=== PATIENT | female | born 1950 | race Caucasian/White ===

== ENCOUNTER 2019-01-31 15:34 | Inpatient (IN) ==
[2019-01-31] MEDS ORDERED: DUONEB (A & A) INH ONE (15:57)
--- NOTE | 2019-01-31 16:12 | Diag Imaging Result Doc PS360 ---
EXAM: CHEST-2 VIEWS 01/31/2019 HISTORY: sob TECHNIQUE: AP upright and sitting lateral chest COMMENT: Compared to 01/10/2019 the lung bases are clearer particularly the left lower lobe. Otherwise there has been no significant change. IMPRESSION: Improved left lower lobe atelectasis versus pneumonia. Electronically signed by Poli Freeman 01/31/2019 4:10 PM
[2019-01-31 16:45] LABS: ALLEN TEST YES; BE 1.7 mmoll (-3.0-3.0); BLOOD TYPE ARTERIAL; HCO3-(ACT) 25.9 mmoll (20.0-26.0); METHB 0.2 % (0.0-1.5); O2(CT) 16.2 mL/dL (15.0-23.0); PCO2(98.6) 45 mmHg (35-45); SAMPLE BLOOD; THB 13.7 g/dL (11.5-17.4); pH(98.6) 7.39 (7.35-7.45)
[2019-01-31 16:48] LABS: MODALITY CANNULA; PO2(98.6) 48 mmHg (60-100)
[2019-01-31 16:49] LABS: O2HB 84.2 % (95.0-99.0)
[2019-01-31 17:36] LABS: BASO# 0.07 X1000 (0.0-0.2); BASO% 0.6 % (0.0-0.8); EOS# 0.03 X1000 (0.0-0.7); EOS% 0.2 % (0.0-10.0); HEMATOCRIT 43.6 % (37.0-47.0); HEMOGLOBIN 14.4 g/dL (12.0-16.0); IMM GRAN# 0.07 X1000 (0.0-0.04); IMM GRAN% 0.6 % (0.0-0.5); LYMPH# 1.44 X1000 (1.2-3.4); LYMPH% 11.9 % (20.5-51.1); MCH 30.4 PG (27-31); MCV 92.2 FL (81-99); MONO# 1.49 X1000 (0.11-0.59); MONO% 12.3 % (1.7-9.3); MPV 10.9 FL (7.4-10.4); NEUT# 8.98 X1000 (1.4-6.5); NEUT% 74.4 % (42.2-75.2); PLT 189 X1000 (130-400); RBC 4.73 XMIL (4.2-5.4); RDW 14.5 % (11.5-14.5); WBC 12.08 X1000 (4.8-10.8)
[2019-01-31 17:46] LABS: INR 0.91
[2019-01-31 17:47] LABS: PTT 34.4 Seconds (22.3-41.8)
[2019-01-31 18:10] LABS: ALB/GLOB RATIO 1.3; ALBUMIN 4.3 g/dL (3.5-5.0); CALCIUM 8.8 mg/dL (8.8-10.2); CREATININE 1.3 mg/dL (0.5-0.9); POTASSIUM 4.5 mmol/L (3.5-5.1); TOTAL BILIRUBIN 0.54 mg/dL (0.20-1.00); TOTAL PROTEIN 7.6 g/dL (6.3-8.3)
--- NOTE | 2019-01-31 18:18 | PROVIDER DOCUMENTATION ---
This chart was entered by Caryn Ron Scribe, acting as scribe for Jensen Cerna DO. HPI-Respiratory General - General Chief Complaint: Shortness of Breath Stated Complaint: O2 LEVEL LOW, (R) HIP PAIN Time Seen by Provider: 01/31/19 15:56 Source: patient, family Allergies/Adverse Reactions: Patient Allergies Allergy/AdvReac Type Severity Reaction Status Date / Time amitriptyline Allergy Mild ITCHING Verified 01/31/19 15:47 azithromycin Allergy Mild ITCHING Verified 01/31/19 15:47 codeine Allergy Mild ITCHING Verified 01/31/19 15:47 ketorolac tromethamine * Allergy Mild ITCHING Verified 01/31/19 15:47 [From Toradol] Quinolones Allergy Mild ITCHING Verified 01/31/19 15:47 ketorolac [From Toradol] Allergy Unknown Verified 01/31/19 15:47 Home Medications: Home Medication List Medication Instructions Recorded Confirmed Last Taken Type Ascorbic Acid [Vitamin C] 500 mg PO DAILY 12/29/15 01/31/19 08/19/18 History Multivit with Calcium,Iron,Min 1 each PO DAILY 12/29/15 01/31/19 08/19/18 History [Women's Daily Multivitamin] [place]-3 Fatty Acids/Fish Oil [Fish 1 each PO DAILY 12/29/15 01/31/19 08/19/18 H istory Oil 1,000 mg Softgel] Aspirin 81 mg PO DAILY 07/11/18 01/31/19 08/19/18 History Calcium Carb/Vitamin D3/Vit K1 1 each PO DAILY 07/11/18 01/31/19 08/19/18 History [Calcium + D Soft Chewable Tab] Cyanocobalamin/Cobamamide [B12 1 each SL DAILY 07/11/18 01/31/19 08/19/18 History 5,000 Mcg Microlozenge] Pregabalin [Lyrica] 150 mg PO BID 07/11/18 01/31/19 08/19/18 History LISINOpril [Prinivil] 20 mg PO DAILY #30 tab 08/22/18 01/31/19 Unknown Rx Albuterol [Albuterol Neb] 1 dose INH PRN PRN 01/10/19 01/31/19 Unknown History Alirocumab [Praluent Pen] 1 dose SQ DIRECTED 01/10/19 01/31/19 01/26/19 History Amlodipine Besylate 1 tab PO DAILY 01/10/19 01/31/19 Unknown History Cholecalciferol (Vitamin D3) 1 cap PO DAILY 01/10/19 01/31/19 Unknown History [Vitamin D3] Cyanocobalamin/Folic Acid [Vitamin 1 tab PO DAILY 01/10/19 01/10/19 Unknown History E17-Tgelb Acid Tablet] Denosumab [Prolia] 1 ea IM DIRECTED 01/10/19 01/31/19 03/21/18 History Escitalopram [Lexapro] 1 tab PO DAILY 01/10/19 01/31/19 Unknown History Furosemide 1 tab PO DAILY 01/10/19 01/31/19 Unknown History Insulin Aspart [Novolog Flexpen] 1 dose SQ DIRECTED 01/10/19 01/31/19 Unknown History Insulin Glargine [Basaglar] 8 units SQ QHS 01/10/19 01/31/19 Unknown History Linagliptin [Tradjenta] 1 tab PO DAILY 01/10/19 01/31/19 Unknown History Lisinopril 1 tab PO DAILY 01/10/19 01/10/19 Unknown History Pioglitazone [Actos] 1 tab PO DAILY 01/10/19 01/31/19 Unknown History Simvastatin 1 tab PO DAILY 01/10/19 01/31/19 Unknown History - History of Present Illness-Resp Nature of Presenting Problem: 68 yof presents to the ed with c/o sob and cough for 3 days. pt was seen today at the urgent care due for low o2 and was given a neb tx. pt on triage was 77% on RA. pt ambulates well and unassisted to room Quality of Pain: reports: none Severity in ED: reports: mild Onset/Duration: reports: 3 days ago Timing: reports: still present Context: reports: recent URI Cough Quality/Degree: reports: dry cough Episode Frequency: frequent episodes Current Respiratory Medication Therapy: Initiated see nurses note Modifying Factors: improves with: oxygen, rest, sitting upright. worse with: exertion, lying down Associated Symptoms: reports: cough, hurts to breathe, shortness of breath, wheezing. denies: chest pain/soreness, dizziness, fever/chills, flu-like symptoms, headache Similar Symptoms Previously?: Yes Recently seen or treated by another doctor?: Yes (was at urgent caare today) Review of Systems - Adult - REVIEW OF SYSTEMS - ADULT Constitutional: denies: chills, fever Eyes: reports: no symptoms reported Ears, Nose, Mouth & Throat: reports: no symptoms reported Cardiovascular: denies: chest pain, palpitations, syncope Respiratory: reports: see HPI, chronic cough, dyspnea on exertion, shortness of breath, wheezing Gastrointestinal: denies: abdominal pain, diarrhea, nausea, vomiting Genitourinary: reports: no symptoms reported Musculoskeletal: denies: back pain, neck pain Integumentary: reports: no symptoms reported Neurological: denies: dizziness/vertigo, headache/migraines Psychiatric: reports: no symptoms reported Endocrine: reports: no symptoms reported Hematologic/Lymphatic: reports: no symptoms reported Allergic/Immunologic: reports: no symptoms reported All Other Systems: Reviewed and Negative Past History - Adult - PAST MEDICAL HISTORY-ADULT Review of Records: reports: Nursing Assessment Review, Medications Reviewed Major Childhood Illnesses: reports: denies history Cardiovascular: reports: CAD, cardiac disease, denies history, HTN, hyperlipidemia Respiratory: reports: COPD, denies history Gastrointestinal: reports: denies history Obstetrical/Gynecological: reports: denies history Genitourinary: reports: denies history Musculoskeletal: reports: denies history Neurological: reports: denies history Endocrine/Immune: reports: Diabetes Diabetes Type: Type 2 Other Conditions: reports: denies history - PRIOR SURGERIES/PROCEDURES Surgical/Procedure History: reports: hysterectomy, appendectomy - IMMUNIZATION STATUS Childhood Immunizations: See Nurse Assessment Flu Vaccine: See Nurse Assessment - FAMILY HISTORY Family History: reviewed, not pertinent - SOCIAL HISTORY Smoking: cigarettes, chew, less than 1 pack/day Substance Use: denies Alcohol Use Frequency: never Living Situation: family Physical Exam-General - PHYSICAL EXAM-ADULT Initial Vital Signs Reviewed: Yes - CONSTITUTIONAL General Appearance: appears well, alert, no apparent distress - EYES Eyes: PERRL/EOMI, pink conjunctivae - HEAD, EARS, NOSE, MOUTH & THROAT HENMT: normocephalic/atraumatic, moist mucous membranes, normal ENT inspection - NECK Neck: non-tender, full range of motion, supple, normal inspection - RESPIRATORY Respiratory: respiratory distress (mild), wheezing, increased rate (26) - CARDIOVASCULAR Cardiovascular: normal peripheral pulses, regular rate, rhythm - GASTROINTESTINAL (ABDOMEN) Abdominal Exam: normal bowel sounds, non tender, soft - LYMPHATIC Lymphatic: no adenopathy - MUSCULOSKELETAL Back Exam: normal inspection, no CVA tenderness, no vertebral tenderness Extremity: normal range of motion, non-tender, normal gait, normal inspection, no pedal edema, no calf tenderness, normal capillary refill, pelvis stable - SKIN Integumentary: normal color, normal turgor, warm/dry - NEUROLOGIC Neurologic: grossly normal, no motor/sensory deficits - PSYCHIATRIC Psych/Mental Status: normal mood/affect, normal thought content, normal thought process, oriented x 3 Progress - PLAN OF CARE/RESULTS Progress/Plan/Lab Results: Vital Signs - 8 hr 01/31/19 15:41 01/31/19 15:52 01/31/19 15:53 Temperature 97.4 F L Pulse Rate 78 Respiratory Rate 22 Blood Pressure 161/83 169/88 O2 Sat by Pulse Oximetry 77 L 79 L 86 L 01/31/19 16:00 01/31/19 16:10 01/31/19 16:20 Temperature Pulse Rate 67 67 Respiratory Rate 20 20 Blood Pressure O2 Sat by Pulse Oximetry 94 L 01/31/19 16:30 01/31/19 16:40 01/31/19 16:50 Temperature Pulse Rate 73 73 74 Respiratory Rate 20 19 19 Blood Pressure O2 Sat by Pulse Oximetry 88 L 01/31/19 17:00 01/31/19 17:01 01/31/19 17:02 Temperature Pulse Rate 76 75 76 Respiratory Rate 20 19 20 Blood Pressure 150/76 163/69 O2 Sat by Pulse Oximetry 92 L 90 L 01/31/19 17:10 01/31/19 17:20 01/31/19 17:22 Temperature Pulse Rate 75 73 68 Respiratory Rate 20 17 Blood Pressure O2 Sat by Pulse Oximetry 92 L 93 L 01/31/19 17:30 01/31/19 17:31 01/31/19 17:40 Temperature Pulse Rate 74 74 76 Respiratory Rate 15 16 15 Blood Pressure 149/74 O2 Sat by Pulse Oximetry 93 L 94 L 98 Laboratory Results - last 24 hr 01/31/19 01/31/19 01/31/19 16:30 17:10 17:10 WBC 12.08 H RBC 4.73 Hgb 14.4 Hct 43.6 MCV 92.2 MCH 30.4 MCHC 33.0 RDW Std Deviation 14.5 Plt Count 189 MPV 10.9 H Immature Gran % (Auto) 0.6 H Neut % (Auto) 74.4 Lymph % (Auto) 11.9 L [place] % (Auto) 12.3 H Eos % (Auto) 0.2 Baso % (Auto) 0.6 Immature Gran # (Auto) 0.07 H Neut # (Auto) 8.98 H Lymph # (Auto) 1.44 [place] # (Auto) 1.49 H Eos # (Auto) 0.03 Baso # (Auto) 0.07 PT INR PTT (Actin FS) Specimen Type ARTERIAL Sample Site L RADIAL pH 7.39 pCO2 45 pO2 48 L* HCO3 25.9 Base Excess 1.7 Oxyhemoglobin 84.2 L* ABG O2 Sat (Calculated) 16.2 ABG O2 Saturation 87.0 L ABG Carboxyhemoglobin 3.00 H ABG Methemoglobin 0.2 Antonio Test YES A-a O2 Difference 181.0 Total Hemoglobin 13.7 Lactate 1.00 Liter Flow 5.0 Blood Gas Modality CANNULA FiO2 % 40.0 Sodium 139 Potassium 4.5 Chloride 96 L Carbon Dioxide 26 Anion Gap 17 BUN 30 H Creatinine 1.3 H Estimated GFR/1.73 m2 41 BUN/Creatinine Ratio 23 Calculated Osmolality 303 Calcium 8.8 Total Bilirubin 0.54 AST 28 ALT 12 Alkaline Phosphatase 81 Creatine Kinase 65 Troponin T Kba-[id number]-Moeucusbjts Pept Total Protein 7.6 Albumin 4.3 Globulin 3.3 Albumin/Globulin Ratio 1.3 01/31/19 01/31/19 01/31/19 17:10 17:10 17:10 WBC RBC Hgb Hct MCV MCH MCHC RDW Std Deviation Plt Count MPV Immature Gran % (Auto) Neut % (Auto) Lymph % (Auto) [place] % (Auto) Eos % (Auto) Baso % (Auto) Immature Gran # (Auto) Neut # (Auto) Lymph # (Auto) [place] # (Auto) Eos # (Auto) Baso # (Auto) PT 13.0 INR 0.91 PTT (Actin FS) 34.4 Specimen Type Sample Site pH pCO2 pO2 HCO3 Base Excess Oxyhemoglobin ABG O2 Sat (Calculated) ABG O2 Saturation ABG Carboxyhemoglobin ABG Methemoglobin Antonio Test A-a O2 Difference Total Hemoglobin Lactate Liter Flow Blood Gas Modality FiO2 % Sodium Potassium Chloride Carbon Dioxide Anion Gap BUN Creatinine Estimated GFR/1.73 m2 BUN/Creatinine Ratio Calculated Osmolality Calcium Total Bilirubin AST ALT Alkaline Phosphatase Creatine Kinase Troponin T < 0.010 Gxr-L-Mibhoumhreo Pept 2460 H Total Protein Albumin Globulin Albumin/Globulin Ratio Orders Category Date Time Status Cardiac Monitoring DIRECTED Care 01/31/19 15:47 Active Oxygen Therapy- ED Nursing DIRECTED Care 01/31/19 15:47 Active Saline Loc NOW Care 01/31/19 15:47 Active CHEST-2 VIEWS [RAD] Stat Exams 01/31/19 15:47 Completed ABG [RESP] Routine Lab 01/31/19 16:30 Completed CBC WITH ELECTRONIC DIFF [HEME] Stat Lab 01/31/19 17:10 Completed CK PROFILE [SP CHEM] Stat Lab 01/31/19 17:10 Results COMPREHENSIVE METABOLIC PANEL [CHEM] Stat Lab 01/31/19 17:10 Results PRO B-NATRIURETIC PEPTIDE Stat Lab 01/31/19 17:10 Completed PROTIME WITH INR [COAG] Stat Lab 01/31/19 17:10 Completed PTT [COAG] Stat Lab 01/31/19 17:10 Completed TROPONIN T Stat Lab 01/31/19 17:10 Completed Albuterol 2.5MG/Ipratrop 0.5MG [Duoneb (A & A)] Med 01/31/19 15:57 Discontinued 3 ml INH NOW ONE Aerosol Treatments Routine Oth 01/31/19 15:57 Completed Aerosol Treatments Stat Oth 01/31/19 15:57 Completed CP/SOB/Palp >45 yrs of Age Stat Oth 01/31/19 15:47 Ordered EKG [EKG] Stat Ther 01/31/19 15:47 Ordered Result Diagrams: 01/31/19 17:10 01/31/19 17:10 - REASSESSMENT Reassessment #1 Time Reassessed: 15:20 ( at bedside) Status: improving Reassessment Comment: better since neb tx Reassessment #2 Time Reassessed: 18:16 (pt without O2 sat drops to low 80's quickly) Status: unchanged Reassessment Comment: at bedside - XRAY 1 XRAY: Bilateral XRAY Study: Chest Impression: See EMR Report (EXAM: CHEST-2 VIEWS 01/31/2019 HISTORY: sob TECHNIQUE: AP upright and sitting lateral chest COMMENT: Compared to 01/10/2019 the lung bases are clearer particularly the left lower lobe. Otherwise there has been no significant change. IMPRESSION: Improved left lower lobe atelectasis versus pneumonia. Electronically signed by Poli Freeman 01/31/2019 4:10 PM 01/31/19 1610 Interpreting Physician: Poli Lozano MD Dictated Date/Time: 01/31/19 1609 cc: Jensen Cerna DO; Rome Cohen MD) - CONSULTS/PCP/HOSPITALIST Notification #1 *Consult/PCP/Hospitalist*: hospitalist dr lyons Time Discussed: 18:16 Consult Disposition: Will see in ED Departure - Departure Date of Disposition Decision: 01/31/19 Time of Disposition Decision: 18:17 DIAGNOSIS: SOB (shortness of breath), COPD exacerbation, Tobacco use disorder, moderate, dependence Disposition: ADMITTED INPATIENT 09 Certified Medical Emergency: Emergent Condition: Fair Referrals and Follow-Ups: Rome Cohen MD [Primary Care Provider] - - Critical Care Note This patient required my direct & personal management of CC.: Yes Total Time (mins): 39 Critical Care Statement: This patient required my direct personal management to treat or rule out processes, the absence of which, could potentiallly result in sudden, clinically significant life or limb threatening deterioration. Attestation - Physician/ ANA LAURA Attestation Patient care was provided by Advanced Practice Provider:: No The physician spent face to face time with patient:: Yes Advanced Practice Provider documentation review:: Supervising physician onsite and consulted in the evaluation and care of this patient. The physician did have a face to face encounter with the patient. This chart was documented by the indicated scribe, (Caryn Ron Scribe) and accurately reflects the services I performed and decisions made by Eryn farah Thomas E., DO, as attested by the provider's signature.
[2019-01-31] MEDS ORDERED: ZOFRAN IV PRN (19:10)
[2019-01-31] MEDS ORDERED: TYLENOL PO PRN (19:10)
[2019-01-31] MEDS ORDERED: ROCEPHIN 1 GM in NS 50 ML IV SCH (19:15)
[2019-01-31] MEDS ORDERED: NS 1,000 ML IV SCH (19:15)
[2019-01-31] MEDS ORDERED: DUONEB (A & A) INH SCH (19:30)
[2019-01-31] MEDS ORDERED: ALBUTEROL NEB INH PRN (19:39)
[2019-01-31] MEDS ORDERED: INSULIN ASPART SQ SCH (19:39)
[2019-01-31] MEDS ORDERED: DENOSUMAB IM SCH (19:39)
[2019-01-31] MEDS ORDERED: ALIROCUMAB SQ SCH (19:39)
--- NOTE | 2019-01-31 19:50 | HISTORY AND PHYSICAL ---
HISTORY OF PRESENT ILLNESS: Ms. Cali is a patient of Dr. Rome Cohen. Apparently, her daughter was concerned about her blood sugars running in the 300s and 400s and brought her to [facility]. [facility] they were concerned about her oxygen saturations being low. She denies feeling short of breath, cough or sputum production or pleuritic pain. The daughter was more concerned about her high sugar. This is a 68-year-old female with history of dementia, diabetes mellitus type 2, coronary artery disease and hypertension. She has had trouble with hyperglycemia before. She lives with her daughter, who takes very good care of her. PAST MEDICAL HISTORY: 1. Labile diabetes mellitus type 2 requiring insulin. 2. Coronary artery disease. 3. Recent history of syncope and had a loop recorder placement. 4. Dementia. 5. COPD. 6. Hypertension. 7. Hyperlipidemia. PAST SURGICAL HISTORY: 1. Appendectomy. 2. Hysterectomy. 3. Right ankle surgery. 4. CABG bypass surgery. 5. Recent loop recorder placement. SOCIAL HISTORY: Lives with daughter. Daughter had has MS. No tobacco history of tobacco, alcohol or drug use. She does have a past history of smoking. She quit last year, by their report. FAMILY HISTORY: Noncontributory. ALLERGIES: Amitriptyline, erythromycin, codeine, Toradol, quinolones. REVIEW OF SYSTEMS: General: She denies any weight gain or loss. No fever or chills. HEENT: Unremarkable. Respiratory: No increased work of breathing or dyspnea. No cough. No sputum production. No pleuritic pain. Cardiovascular: No chest pain or tachycardia or palpitations. GI: Unremarkable. : Unremarkable. Musculoskeletal: No significant complaints. Neurologic: No significant complaints. Endocrinologic/Hematologic: No significant history. PHYSICAL EXAMINATION: VITAL SIGNS: Temperature 97.4 degrees, pulse 77, respirations 21, blood pressure 163/82. Weight 131 pounds. Height 5 feet 2 inches. HEENT: Pupils are equal and round. LUNGS: Clear in all lung renteria. CARDIOVASCULAR: Regular rhythm and rate without murmur or S3. ABDOMEN: Soft. SKIN: Warm and dry. LABS: White count 12,080. Hematocrit was 43, platelet count 189,00. Sodium 139, potassium 4.5, chloride 96, BUN 30, creatinine 1.3. Blood sugar was 442, calcium was 8.8, AST 28, ALT 12. Troponin was less than 0.01. ProBNP was 2460. Pro time 13. PTT was 34. A blood gas showed a pH of 7.39, pCO2 of 45, pO2 of 48, O2 saturation 85%. This was on 5 L at 40%. Chest x-ray is improved as far as left lower lobe atelectasis. Could not rule out pneumonia. ASSESSMENT AND PLAN: 1. Severe chronic obstructive pulmonary disease with exacerbation. Questionable infiltrate in the left lower lobe. She is allergic to azithromycin. Will cover for community organisms. Will likely have to go up on her O2. Will follow up with another chest x-ray in the morning. We will check thyroid, B12 and folate and look for any source of bacterial infection but treat her presumptively for pneumonia at this point. 1. Underlying dementia. Aware. 2. History of hypertension. Will try and continue her current medications. cc: Antonio De Santiago MD
[2019-01-31] MEDS: HUMALOG SUBQ SCH ×2 (20:18→22:07)
[2019-01-31] MEDS ORDERED: BASAGLAR SUBQ SCH (21:00)
[2019-01-31] MEDS: LYRICA PO SCH (22:04)
[2019-02-01] MEDS: HUMALOG SUBQ SCH ×5 (06:12→23:06)
[2019-02-01 06:34] LABS: URINE SOURCE CLEAN CATCH
[2019-02-01 07:32] LABS: BASO# 0.02 X1000 (0.0-0.2); BASO% 0.2 % (0.0-0.8); EOS# 0.01 X1000 (0.0-0.7); EOS% 0.1 % (0.0-10.0); HEMATOCRIT 39.7 % (37.0-47.0); HEMOGLOBIN 12.7 g/dL (12.0-16.0); IMM GRAN# 0.04 X1000 (0.0-0.04); IMM GRAN% 0.5 % (0.0-0.5); LYMPH# 1.29 X1000 (1.2-3.4); LYMPH% 14.6 % (20.5-51.1); MCH 29.5 PG (27-31); MCV 92.3 FL (81-99); MONO# 0.77 X1000 (0.11-0.59); MONO% 8.7 % (1.7-9.3); MPV 10.4 FL (7.4-10.4); NEUT% 75.9 % (42.2-75.2); PLT 176 X1000 (130-400); RDW 14.5 % (11.5-14.5); WBC 8.83 X1000 (4.8-10.8)
[2019-02-01 08:03] LABS: ALB/GLOB RATIO 1.2; ALBUMIN 3.7 g/dL (3.5-5.0); CALCIUM 9.6 mg/dL (8.8-10.2); CREATININE 1.6 mg/dL (0.5-0.9); POTASSIUM 3.6 mmol/L (3.5-5.1); TOTAL BILIRUBIN 0.38 mg/dL (0.20-1.00); TOTAL PROTEIN 6.8 g/dL (6.3-8.3)
[2019-02-01 08:08] LABS: BILIRUBIN URINE NEGATIVE (NEGATIVE); BLOOD URINE NEGATIVE (NEGATIVE); COLOR YELLOW; GLUCOSE URINE >1000 mg/dL (NEGATIVE); KETONE URINE 40 mg/dL (NEGATIVE); LEUKOCYTES URINE TRACE (NEGATIVE); NITRITE URINE NEGATIVE (NEGATIVE); PROTEIN URINE TRACE mg/dL (NEGATIVE); SP GRAVITY URINE 1.015; TURBIDITY URINE CLEAR (CLEAR); UROBILINOGEN URINE NORMAL (NORMAL)
[2019-02-01 08:09] LABS: UR EPITHELIAL CELLS <10 /HPF (<10); URINE BACTERIA 4+ /HPF; URINE RBC <10 /HPF (<10)
[2019-02-01] MEDS ORDERED: PRILOSEC PO SCH (09:00)
[2019-02-01] MEDS: LEXAPRO PO SCH (10:34)
[2019-02-01] MEDS: PRINIVIL PO SCH (10:34)
[2019-02-01] MEDS: VITAMIN D PO SCH (10:34)
[2019-02-01] MEDS: CALTRATE 600 + D PO SCH (10:34)
[2019-02-01] MEDS: THERA M PLUS PO SCH (10:34)
[2019-02-01] MEDS: NORVASC PO SCH (10:34)
[2019-02-01] MEDS: ASPIRIN PO SCH (10:34)
[2019-02-01] MEDS: ZOCOR PO SCH (10:35)
[2019-02-01] MEDS: VITAMIN C PO SCH (10:35)
[2019-02-01] MEDS: LASIX PO SCH (10:35)
[2019-02-01] MEDS: TRADJENTA PO SCH (10:36)
[2019-02-01] MEDS: LYRICA PO SCH ×2 (10:36→21:13)
[2019-02-01] MEDS: VITAMIN B-12 SL SCH (10:36)
--- NOTE | 2019-02-01 13:22 | PROGRESS NOTE ---
DATE: 02/01/2019 SUBJECTIVE: Ms. Cali said she had an uneventful night. Was breathing comfortably. No complaints of chest pain. No sign of fever or chills. OBJECTIVE: Temperature 98 degrees, pulse 57, respirations 20, blood pressure 112/50. Pupils are equal and round. Lungs are clear in all lung renteria. Cardiovascular Examination: Regular rhythm and rate without murmur or S3. Blood sugar 342, 358. ASSESSMENT AND PLAN: 1. She presented with some concerns about her blood sugar running high. It is still running above 300. We will make some adjustments. I am going to go up on her basilar insulin from 8 to 21 mg at bedtime and continue sliding scale. 2. Chronic obstructive pulmonary disease. Breathing seems to be comfortable. She is on home oxygen, with chronic hypoxemia. Her chest x-ray from yesterday, improved left lower lobe atelectasis. Check another chest x-ray in the morning. 3. Blood pressures appear well controlled. cc: Antonio De Santiago MD
--- NOTE | 2019-02-01 14:20 | Diag Imaging Result Doc PS360 ---
EXAM: CHEST-2 VIEWS 02/01/2019 HISTORY: copd, pulmonary edema TECHNIQUE: PA and lateral chest COMMENT: There is cardiomegaly. There is atelectasis versus pneumonia in the right middle lobe which was not present on 01/31/2019. Otherwise compared to the previous examination there has been no significant change. IMPRESSION: Atelectasis versus bronchopneumonia. Electronically signed by Poli Freeman 02/01/2019 2:17 PM
[2019-02-01] MEDS: BASAGLAR SUBQ SCH (21:14)
[2019-02-02] MEDS: HUMALOG SUBQ SCH ×4 (06:03→22:50)
[2019-02-02 07:48] LABS: HEMOGLOBIN A1C 8.6 % (4.8-6.0)
[2019-02-02] MEDS: PRINIVIL PO SCH (08:42)
[2019-02-02] MEDS: THERA M PLUS PO SCH (08:42)
[2019-02-02] MEDS: TRADJENTA PO SCH (08:42)
[2019-02-02] MEDS: NORVASC PO SCH (08:42)
[2019-02-02] MEDS: LYRICA PO SCH ×2 (08:42→22:52)
[2019-02-02] MEDS: VITAMIN D PO SCH (08:42)
[2019-02-02] MEDS: CALTRATE 600 + D PO SCH (08:42)
[2019-02-02] MEDS: ZOCOR PO SCH (08:42)
[2019-02-02] MEDS: VITAMIN B-12 SL SCH (08:42)
[2019-02-02] MEDS: LEXAPRO PO SCH (08:43)
[2019-02-02] MEDS: ASPIRIN PO SCH (08:43)
[2019-02-02] MEDS: LASIX PO SCH (08:43)
[2019-02-02] MEDS: VITAMIN C PO SCH (08:43)
--- NOTE | 2019-02-02 09:40 | EKG Report ---
Test Performed on : 01/31/2019 5:51:52 PM Test Reason : sob Blood Pressure : / mmHG Vent. Rate : 076 BPM Atrial Rate : 076 BPM P-R Int : 166 ms QRS Dur : 110 ms QT Int : 438 ms P-R-T Axes : 056 010 045 degrees QTc Int : 492 ms Normal sinus rhythm. Incomplete right bundle branch block Minimal voltage criteria for LVH, may be normal variant Septal infarct (cited on or before 11-JUL-2018) Abnormal ECG When compared with ECG of 23-JUL-2018 22:08, premature atrial complexes. are no longer present Unconfirmed Result
--- NOTE | 2019-02-02 18:39 | PROGRESS NOTE ---
DATE: 02/02/2019 SUBJECTIVE: Ms. Cali wants to go home put was not clear. It does not look like she has oxygen at home. She was on oxygen a couple years ago. Blood sugars seem to be doing better. Her daughter states that she eats some days and does not eat any much the other days so it has been a little difficult. OBJECTIVE: Vital Signs: Temperature 98 degrees, pulse 66, respirations 16, blood pressure 144/72 pupils are equal, round. Lungs: Clear in all lung renteria. Cardiovascular: Regular rhythm and rate without murmur or S3. Abdomen: Soft. Skin: Warm and dry. Urine output: 1800 mL DIAGNOSTIC DATA: Her EKG from this morning, normal sinus rhythm, incomplete right bundle branch block. No suspicious ST-segment deviation. Her chest x-ray on presentation improved left lower lobe atelectasis. Actually looks pretty clear. Followup chest x-ray on the atelectasis versus bronchopneumonia. She is requiring the O2. When they take it off her oxygen saturations go below 90%. Temperature 98 degrees, pulse 66, respirations 16, blood pressure 144/79. Pupils are equal and round. Lungs are clear in all lung renteria. Cardiovascular exam regular rate without murmur or S3. She has no wheezing. Decreased breath sounds both bases. Blood sugars 127, 178 her last couple ones. I did increase her Lantus insulin. ASSESSMENT AND PLAN: 1. Chronic obstructive pulmonary disease questionable bronchopneumonia. She seems better. She is anxious to go home. She obviously will need some oxygen, though. I suspect chronic hypoxemia secondary to chronic obstructive pulmonary disease, so we will try and get O2 arranged for her. 2. Diabetes mellitus type 2. Sugars were running high. This seems to have come down fairly nicely. I did increase her insulin glargine. I instructed the daughter that if she does eat they need to cut the insulin in half. 3. Some underlying dementia. 4. Hypertension. Blood pressures appear pretty well controlled. So, I will see if I can get discharge ready for tomorrow. We are trying to get the oxygen and I suspect we will encourage her to take antibiotic for another 7 days, but she is like I said very anxious to go home. Currently, I do not have her on the antibiotics though and looking back she has not shown any sign of true bacterial infection. I think this is mainly atelectasis. I do not think I would put her on antibiotic. I will see if we can get things set up for tomorrow. cc: Antonio De Santiago MD
[2019-02-02] MEDS: TYLENOL PO PRN (18:57)
[2019-02-02] MEDS: BASAGLAR SUBQ SCH (22:52)
[2019-02-03] MEDS: ASPIRIN PO SCH (08:46)
[2019-02-03] MEDS: VITAMIN D PO SCH (08:46)
[2019-02-03] MEDS: VITAMIN C PO SCH (08:46)
[2019-02-03] MEDS: ZOCOR PO SCH (08:46)
[2019-02-03] MEDS: THERA M PLUS PO SCH (08:46)
[2019-02-03] MEDS: TRADJENTA PO SCH (08:46)
[2019-02-03] MEDS: LYRICA PO SCH ×2 (08:46→22:27)
[2019-02-03] MEDS: VITAMIN B-12 SL SCH (08:46)
[2019-02-03] MEDS: NORVASC PO SCH (08:46)
[2019-02-03] MEDS: CALTRATE 600 + D PO SCH (08:46)
[2019-02-03] MEDS: PRINIVIL PO SCH (08:46)
[2019-02-03] MEDS: LASIX PO SCH (08:47)
[2019-02-03] MEDS: LEXAPRO PO SCH (08:47)
[2019-02-03] MEDS: HUMALOG SUBQ SCH ×3 (11:07→22:32)
[2019-02-03] MEDS ORDERED: ROCEPHIN 1 GM in NS 50 ML IV SCH (16:30)
[2019-02-03] MEDS ORDERED: ZITHROMAX 500 MG/NS 500 MG/250 ML IVPB IV SCH (16:30)
--- NOTE | 2019-02-03 16:37 | PROGRESS NOTE ---
DATE: 02/03/2019 SUBJECTIVE: This patient is still complaining of some shortness of breath, chest x-ray done a couple days ago showed possible pneumonia at the level of the right middle lobe. No fever but probably some chills. I will start this patient on antibiotics since she is also having COPD exacerbation and I will monitor. OBJECTIVE: Vital Signs: Temperature 97 degrees, pulse 73, respiratory rate 19, blood pressure 153/68, oxygen saturation 93 on 3 L of nasal cannula. HEENT: Head normocephalic. No trauma. PERRLA. Neck: Supple. No JVD. No masses. Central trachea. Chest: Decreased breath sounds globally with bilateral rhonchi and expiratory wheezing, prolonged expiratory phase. Abdomen: Soft, nontender, nondistended. No hepatosplenomegaly. Extremities: No edema, no clubbing, no cyanosis. Neurological: The patient is alert and oriented x3. No focal deficits. LABORATORY: Blood sugar at 6:44 a.m. 179, blood sugar at 10:28 a.m. 358, blood sugar at 3 p.m. 55. ASSESSMENT AND PLAN: 1. Chronic obstructive pulmonary disease exacerbation with right-sided pneumonia, I have placed this patient on antibiotics. I will continue breathing treatment and oxygen supplementation, I have requested physical therapy evaluations to see if this patient can get out of the bed. 2. Type 2 diabetes, blood sugars are running high with some hypoglycemic events, this patient received 15 units of insulin and then around 3 hours later she was hypoglycemic, I have decreased the dose of the sliding scale insulin from medium dose to low dose and I will monitor, I will continue with the same dose of the insulin glargine which has been 21 units subcu at bedtime. 3. Hypertension, controlled. 4. Possible dementia, she has been answering all my questions. We will just follow. 5. Hypoxemic respiratory failure. Continue with oxygen supplementation, she has been on home oxygen for her chronic hypoxemia around 4 L. cc: Tobi Gilliland MD
[2019-02-03] MEDS: ZOSYN 3.375 GM in NS 50 ML IV SCH (18:49)
[2019-02-03] MEDS: BASAGLAR SUBQ SCH (22:28)
[2019-02-04] MEDS: ZOSYN 3.375 GM in NS 50 ML IV SCH ×4 (02:37→21:22)
[2019-02-04] MEDS: HUMALOG SUBQ SCH ×4 (07:01→21:27)
[2019-02-04 07:37] LABS: BASO# 0.04 X1000 (0.0-0.2); BASO% 0.5 % (0.0-0.8); EOS# 0.14 X1000 (0.0-0.7); EOS% 1.9 % (0.0-10.0); HEMATOCRIT 43.3 % (37.0-47.0); HEMOGLOBIN 14.2 g/dL (12.0-16.0); IMM GRAN# 0.02 X1000 (0.0-0.04); IMM GRAN% 0.3 % (0.0-0.5); LYMPH# 2.28 X1000 (1.2-3.4); LYMPH% 30.7 % (20.5-51.1); MCHC 32.8 g/dL (33-37); MCV 91.4 FL (81-99); MONO# 0.66 X1000 (0.11-0.59); MONO% 8.9 % (1.7-9.3); MPV 10.6 FL (7.4-10.4); NEUT# 4.29 X1000 (1.4-6.5); NEUT% 57.7 % (42.2-75.2); PLT 215 X1000 (130-400); RBC 4.74 XMIL (4.2-5.4); RDW 14.1 % (11.5-14.5); WBC 7.43 X1000 (4.8-10.8)
[2019-02-04 07:59] LABS: CALCIUM 9.4 mg/dL (8.8-10.2); POTASSIUM 4.1 mmol/L (3.5-5.1)
[2019-02-04] MEDS: VITAMIN B-12 SL SCH (09:46)
[2019-02-04] MEDS: LEXAPRO PO SCH (09:47)
[2019-02-04] MEDS: ZOCOR PO SCH (09:47)
[2019-02-04] MEDS: ASPIRIN PO SCH (09:47)
[2019-02-04] MEDS: VITAMIN D PO SCH (09:47)
[2019-02-04] MEDS: PRINIVIL PO SCH (09:48)
[2019-02-04] MEDS: LASIX PO SCH (09:48)
[2019-02-04] MEDS: VITAMIN C PO SCH (09:48)
[2019-02-04] MEDS: TRADJENTA PO SCH (09:48)
[2019-02-04] MEDS: THERA M PLUS PO SCH (09:48)
[2019-02-04] MEDS: NORVASC PO SCH (09:48)
[2019-02-04] MEDS: CALTRATE 600 + D PO SCH (09:49)
[2019-02-04] MEDS: LYRICA PO SCH ×2 (10:16→21:32)
[2019-02-04] MEDS ORDERED: DUONEB (A & A) INH PRN (14:59)
[2019-02-04] MEDS: DUONEB (A & A) INH SCH ×3 (15:20→23:35)
--- NOTE | 2019-02-04 16:13 | PROGRESS NOTE ---
DATE: 02/04/2019 SUBJECTIVE: This patient is still complaining of some shortness of breath. She has pneumonia at the level of the right middle lobe. She is on antibiotics. She also has COPD exacerbation. We will monitor. OBJECTIVE: Vital Signs: Temperature 97.2, pulse 60, respiratory rate 20, blood pressure 158/83. Oxygen saturation 92 on 2 L of nasal cannula. HEENT: Head normocephalic, no trauma. PERRLA. Neck: Supple. No JVD. No masses. Central trachea. Chest: Decreased breath sounds globally with bilateral rhonchi and expiratory wheezing, prolonged expiratory phase. Abdomen: Soft, nontender, nondistended. No hepatosplenomegaly. Extremities: No edema, no clubbing, no cyanosis. Neurologic: This patient is alert. She is oriented x 2. She is not oriented to time. She does have a baseline dementia as per the family. LABORATORY: WBC 7.4, hemoglobin 14.2, hematocrit 43.3, platelets 215,000. Sodium 145, potassium 4.1, chloride 101, bicarbonate 34, BUN 24, creatinine 1, glucose 56, calcium 9.4. ASSESSMENT AND PLAN: 1. Chronic obstructive pulmonary disease exacerbation with right-sided pneumonia. Continue with antibiotics, breathing treatment, oxygen supplementation, physical therapy. 2. Type 2 diabetes. Blood sugar has been running high with some episodes of hyperglycemia. I had a conversation with the daughter, Mrs. Da Silva, and apparently she has been having the same problem at home. Blood sugar can go up and down really fast because the patient is not following the diet, sometimes she does not want to eat and sometimes she is eating. I will increase a little bit the basal long-acting insulin from 8 to 12 to see how she does. She was placed here on 21 units a few days ago. 3. Hypertension, controlled. 4. Dementia. She is answering my questions and following commands, but as per the daughter this patient has been having memory problems/Alzheimer. 5. Hypoxemic respiratory failure. Continue with oxygen supplementation. She has been on home oxygen and apparently she has she has been getting 4 L. cc: Tobi Gilliland MD
[2019-02-04] MEDS ORDERED: BASAGLAR SUBQ SCH (21:00)
[2019-02-04] MEDS: BASAGLAR SUBQ SCH (21:32)
[2019-02-05] MEDS: ZOSYN 3.375 GM in NS 50 ML IV SCH ×4 (02:05→21:19)
[2019-02-05] MEDS: DUONEB (A & A) INH SCH ×6 (03:25→23:55)
[2019-02-05] MEDS: HUMALOG SUBQ SCH ×4 (05:59→21:19)
[2019-02-05 07:56] LABS: BASO# 0.04 X1000 (0.0-0.2); BASO% 0.4 % (0.0-0.8); EOS# 0.11 X1000 (0.0-0.7); EOS% 1.2 % (0.0-10.0); HEMATOCRIT 43.8 % (37.0-47.0); HEMOGLOBIN 14.4 g/dL (12.0-16.0); IMM GRAN# 0.03 X1000 (0.0-0.04); IMM GRAN% 0.3 % (0.0-0.5); LYMPH# 1.77 X1000 (1.2-3.4); LYMPH% 18.6 % (20.5-51.1); MCH 29.9 PG (27-31); MCHC 32.9 g/dL (33-37); MCV 90.9 FL (81-99); MONO# 0.89 X1000 (0.11-0.59); MONO% 9.3 % (1.7-9.3); MPV 10.8 FL (7.4-10.4); NEUT# 6.69 X1000 (1.4-6.5); NEUT% 70.2 % (42.2-75.2); PLT 203 X1000 (130-400); RBC 4.82 XMIL (4.2-5.4); WBC 9.53 X1000 (4.8-10.8)
[2019-02-05 08:14] LABS: CALCIUM 8.9 mg/dL (8.8-10.2); CREATININE 1.1 mg/dL (0.5-0.9); POTASSIUM 4.2 mmol/L (3.5-5.1)
[2019-02-05] MEDS: VITAMIN C PO SCH (09:13)
[2019-02-05] MEDS: ZOCOR PO SCH (09:14)
[2019-02-05] MEDS: CALTRATE 600 + D PO SCH (09:14)
[2019-02-05] MEDS: THERA M PLUS PO SCH (09:15)
[2019-02-05] MEDS: NORVASC PO SCH (09:16)
[2019-02-05] MEDS: VITAMIN D PO SCH (09:16)
[2019-02-05] MEDS: VITAMIN B-12 SL SCH (09:16)
[2019-02-05] MEDS: TRADJENTA PO SCH (09:16)
[2019-02-05] MEDS: ASPIRIN PO SCH (09:16)
[2019-02-05] MEDS: LEXAPRO PO SCH (09:17)
[2019-02-05] MEDS: LASIX PO SCH (09:17)
[2019-02-05] MEDS: PRINIVIL PO SCH (09:17)
[2019-02-05] MEDS: LYRICA PO SCH ×2 (09:17→21:18)
--- NOTE | 2019-02-05 15:48 | PROGRESS NOTE ---
DATE: 02/05/2019 SUBJECTIVE: This patient is still complaining of shortness of breath. She does have pneumonia at the level of the right middle lobe, and also she is on antibiotics. She has COPD exacerbation as well, but she is getting better. We will continue with the same management. I will add Mucinex to her medications. OBJECTIVE: Vital Signs: Temperature 98.4 degrees, pulse 70, respiratory rate 20, blood pressure 154/83, oxygen saturation 93 on 2.5 L nasal cannula. HEENT: Head normocephalic, no trauma. PERRLA. Neck: Supple. No JVD. No masses. Central trachea. Chest: Decreased breath sounds globally with bilateral rhonchi and expiratory wheezing, prolonged expiratory phase. Abdomen: Soft, nontender, nondistended. No hepatosplenomegaly. Extremities: No edema, no clubbing, no cyanosis. Neurological examination: The patient is alert. She is oriented x2. She is not oriented to time. She does have a baseline dementia as per the family. LABORATORY: WBC 9.5, hemoglobin 14.4, hematocrit 43.8, platelets 203. Sodium 139, potassium 4.2, chloride 98, bicarbonate 26. BUN 24, creatinine 1.1, glucose 126, calcium 8.9. ASSESSMENT AND PLAN: 1. Chronic obstructive pulmonary disease exacerbation with right-sided pneumonia. Continue with antibiotics, breathing treatment, oxygen supplementation and physical therapy. 2. Type 2 diabetes. Blood sugar has been up and down, with some episodes of hypoglycemia. I talked to her daughter, Ms. Da Silva. Apparently she has been having the same problem at home. Apparently this patient is not eating like she should eat and at different hours. I will continue with 12 units for now during the night and sliding scale insulin. 3. Hypertension, controlled. 4. Dementia. She is answering all my questions and following commands, but as per the daughter she has been having some memory loss/Alzheimer. 5. Hypoxemic respiratory failure. Continue with oxygen supplementation. She has been on oxygen at home as well. cc: Tobi Gilliland MD
--- NOTE | 2019-02-05 16:05 | PROGRESS NOTE ---
DATE: 02/05/2019 SUBJECTIVE: This patient states that she is feeling better. She has pneumonia at the level of the right middle lobe. She is on antibiotics. She also has COPD exacerbation. We started already Physical Therapy on this patient. INCOMPLETE REPORT, DICTATION ENDS HERE. cc: Tobi Gilliland MD
[2019-02-05] MEDS: MUCINEX PO SCH ×2 (17:47→21:21)
[2019-02-05] MEDS: BASAGLAR SUBQ SCH (21:18)
[2019-02-05] MEDS: TYLENOL PO PRN (21:30)
[2019-02-06] MEDS: ZOSYN 3.375 GM in NS 50 ML IV SCH ×4 (01:48→20:07)
[2019-02-06] MEDS: DUONEB (A & A) INH SCH ×5 (03:35→21:15)
[2019-02-06] MEDS: HUMALOG SUBQ SCH ×4 (06:00→20:15)
[2019-02-06] MEDS ORDERED: INSULIN PEN NEEDLES ONE (06:08)
[2019-02-06] MEDS: VITAMIN B-12 SL SCH (10:13)
[2019-02-06] MEDS: NORVASC PO SCH (10:13)
[2019-02-06] MEDS: LASIX PO SCH (10:13)
[2019-02-06] MEDS: THERA M PLUS PO SCH (10:13)
[2019-02-06] MEDS: TYLENOL PO PRN ×3 (10:13→23:12)
[2019-02-06] MEDS: TRADJENTA PO SCH (10:13)
[2019-02-06] MEDS: VITAMIN C PO SCH (10:13)
[2019-02-06] MEDS: PRINIVIL PO SCH (10:13)
[2019-02-06] MEDS: LEXAPRO PO SCH (10:13)
[2019-02-06] MEDS: MUCINEX PO SCH ×2 (10:14→20:06)
[2019-02-06] MEDS: LYRICA PO SCH ×2 (10:14→20:06)
[2019-02-06] MEDS: VITAMIN D PO SCH (10:14)
[2019-02-06] MEDS: ZOCOR PO SCH (10:14)
[2019-02-06] MEDS: CALTRATE 600 + D PO SCH (10:15)
[2019-02-06] MEDS: ASPIRIN PO SCH (10:15)
[2019-02-06] MEDS: ROBAXIN PO SCH (13:00)
--- NOTE | 2019-02-06 13:57 | PROGRESS NOTE ---
DATE: 02/06/2019 SUBJECTIVE: Patient is feeling better but she is still complaining of shortness of breath, she has been working with physical therapy, probably she will not need to go to a rehab center. We will continue with same management. OBJECTIVE: Vital Signs: Temperature 98 degrees, pulse 65, respiratory rate 18, blood pressure 155/82, oxygen saturation 98 on 3 L of nasal cannula. HEENT: Head normocephalic. No trauma. PERRLA. Neck: Supple. No JVD. No masses. Central trachea. Chest: Decreased breath sounds globally with bilateral rhonchi at the bases mostly and expiratory wheezing, scattered, prolonged expiratory phase. Abdomen: Soft, nontender, nondistended. No hepatosplenomegaly. Extremities: No edema, no clubbing, no cyanosis. Neurological: Alert and oriented x2. She apparently has a baseline dementia as per the family. LABORATORY DATA: Glucose 74. ASSESSMENT AND PLAN: 1. Chronic obstructive pulmonary disease exacerbation with right-sided pneumonia, continue with antibiotics breathing treatment, oxygen supplementation, and physical therapy. 2. Type 2 diabetes. Blood sugar has been up and down still but I will continue with the same management. I talked to her daughter, Ms. Da Silva, and apparently she has been having the same problem at home. Apparently she is not really following a diet. 3. Hypertension, controlled. 4. Dementia. She is answering all my questions and following commands. I think she this is her baseline. 5. Hypoxemic respiratory failure. Continue with oxygen supplementation. She has been on oxygen at home as well. 6. Overall, this patient is doing better. Probably I will continue with 1 or 2 more days of treatment and send her home if she does not need rehab. cc: Tobi Gilliland MD
[2019-02-06] MEDS: BASAGLAR SUBQ SCH (20:07)
[2019-02-07] MEDS: ZOSYN 3.375 GM in NS 50 ML IV SCH ×4 (01:12→21:14)
[2019-02-07] MEDS: DUONEB (A & A) INH SCH ×5 (03:35→22:04)
[2019-02-07] MEDS: HUMALOG SUBQ SCH ×4 (06:40→21:20)
[2019-02-07 08:11] LABS: CALCIUM 9.3 mg/dL (8.8-10.2); CREATININE 1.3 mg/dL (0.5-0.9); POTASSIUM 4.9 mmol/L (3.5-5.1)
[2019-02-07] MEDS: THERA M PLUS PO SCH (10:13)
[2019-02-07] MEDS: ROBAXIN PO SCH (10:13)
[2019-02-07] MEDS: VITAMIN C PO SCH (10:13)
[2019-02-07] MEDS: VITAMIN B-12 SL SCH (10:13)
[2019-02-07] MEDS: VITAMIN D PO SCH (10:13)
[2019-02-07] MEDS: LYRICA PO SCH ×2 (10:13→21:24)
[2019-02-07] MEDS: MUCINEX PO SCH ×2 (10:13→21:19)
[2019-02-07] MEDS: CALTRATE 600 + D PO SCH (10:13)
[2019-02-07] MEDS: TRADJENTA PO SCH (10:14)
[2019-02-07] MEDS: NORVASC PO SCH (10:14)
[2019-02-07] MEDS: TYLENOL PO PRN ×2 (10:14→16:38)
[2019-02-07] MEDS: ASPIRIN PO SCH (10:14)
[2019-02-07] MEDS: ZOCOR PO SCH (10:16)
[2019-02-07] MEDS: PRINIVIL PO SCH (10:17)
[2019-02-07] MEDS: LASIX PO SCH (10:17)
[2019-02-07] MEDS: LEXAPRO PO SCH (10:17)
--- NOTE | 2019-02-07 15:24 | PROGRESS NOTE ---
DATE: 02/07/2019 SUBJECTIVE: This patient is feeling better, the shortness of breath is getting better as well. She is still having hypoglycemia mostly early in the morning. I will give her half of the dose of the night sliding scale insulin to see how she does, the nurse has been instructed already. OBJECTIVE: Vital Signs: Temperature 98.2 degrees, pulse 71, respiratory rate 19, blood pressure 136/63, oxygen saturation 100% on 3 L of nasal cannula. HEENT: Head normocephalic. No trauma. PERRLA. Neck: Supple. No JVD. No masses. Central trachea. Chest: Decreased breath sounds bilaterally with scattered rhonchi mostly at the bases, she does have faint expiratory wheezing which is much better compared with admission. Abdomen: Soft, nontender, nondistended. No hepatosplenomegaly. Extremities: No edema, no clubbing, no cyanosis. Neurologic: The patient is alert and oriented x3 today. No focal deficits but apparently baseline dementia. LABORATORY: Sodium 136, potassium 4.9, chloride 98, bicarbonate 26, BUN 22, creatinine 1.3, glucose 293, calcium 9.3. ASSESSMENT AND PLAN: 1. Chronic obstructive pulmonary disease exacerbation with right-sided pneumonia, continue with antibiotics, breathing treatment, oxygen supplementation and physical therapy. 2. Type 2 diabetes, still somehow uncontrolled but I will decrease the bedtime dose of the sliding scale insulin if the patient requested, will monitor. 3. History of dementia aware. 4. Hypertension, controlled. 5. Hypoxemic respiratory failure. Continue with oxygen supplementation. She has been on oxygen at home. 6. Overall this patient is doing better. Probably I will discharge this patient tomorrow. We will continue with the same management. cc: Tobi Gilliland MD
[2019-02-07] MEDS ORDERED: BASAGLAR SUBQ SCH (21:00)
[2019-02-08] MEDS: ZOSYN 3.375 GM in NS 50 ML IV SCH ×2 (02:55→09:03)
[2019-02-08] MEDS: DUONEB (A & A) INH SCH ×2 (03:25→09:49)
[2019-02-08] MEDS: HUMALOG SUBQ SCH ×2 (06:24→11:27)
[2019-02-08 07:39] LABS: BASO# 0.06 X1000 (0.0-0.2); BASO% 0.7 % (0.0-0.8); EOS% 2.3 % (0.0-10.0); HEMATOCRIT 40.4 % (37.0-47.0); HEMOGLOBIN 13.2 g/dL (12.0-16.0); IMM GRAN# 0.04 X1000 (0.0-0.04); IMM GRAN% 0.5 % (0.0-0.5); LYMPH% 24.4 % (20.5-51.1); MCH 29.6 PG (27-31); MCHC 32.7 g/dL (33-37); MCV 90.6 FL (81-99); MONO# 0.88 X1000 (0.11-0.59); MONO% 10.2 % (1.7-9.3); MPV 10.6 FL (7.4-10.4); NEUT# 5.32 X1000 (1.4-6.5); NEUT% 61.9 % (42.2-75.2); PLT 236 X1000 (130-400); RBC 4.46 XMIL (4.2-5.4); RDW 13.8 % (11.5-14.5)
[2019-02-08 08:05] LABS: CALCIUM 9.2 mg/dL (8.8-10.2); CREATININE 1.1 mg/dL (0.5-0.9); POTASSIUM 4.2 mmol/L (3.5-5.1)
[2019-02-08] MEDS: LEXAPRO PO SCH (08:59)
[2019-02-08] MEDS: VITAMIN C PO SCH (08:59)
[2019-02-08] MEDS: NORVASC PO SCH (08:59)
[2019-02-08] MEDS: VITAMIN B-12 SL SCH (09:00)
[2019-02-08] MEDS: CALTRATE 600 + D PO SCH (09:00)
[2019-02-08] MEDS: ROBAXIN PO SCH (09:00)
[2019-02-08] MEDS: VITAMIN D PO SCH (09:00)
[2019-02-08] MEDS: ASPIRIN PO SCH (09:01)
[2019-02-08] MEDS: THERA M PLUS PO SCH (09:01)
[2019-02-08] MEDS: PRINIVIL PO SCH (09:01)
[2019-02-08] MEDS: LASIX PO SCH (09:01)
[2019-02-08] MEDS: LYRICA PO SCH (09:01)
[2019-02-08] MEDS: TRADJENTA PO SCH (09:02)
[2019-02-08] MEDS: ZOCOR PO SCH (09:02)
[2019-02-08] MEDS: MUCINEX PO SCH (09:02)
[2019-02-08 14:13] VITALS: BP 146/97
--- NOTE | 2019-02-08 16:47 | DISCHARGE SUMMARY ---
ADMISSION DATE: 01/31/2019 DISCHARGE DATE: 02/08/2019 DISCHARGE DIAGNOSES: 1. Chronic obstructive pulmonary disease exacerbation. 2. Right-sided pneumonia. 3. Type 2 diabetes with episodes of hypoglycemia. 4. Hypertension. 5. Hypoxemic respiratory failure upon admission. 6. Dementia. PROCEDURES PERFORMED: 1. Chest x-ray dated 01/21/2019, impression: Improved left lower lobe atelectasis versus pneumonia. 2. Electrocardiogram dated 01/31/2019, impression: Normal sinus rhythm, incomplete right bundle branch block. 3. Chest x-ray dated 02/01/2019, impression: Right middle lobe pneumonia versus atelectasis. HOSPITAL COURSE: This is a 68-year-old female with a past medical history of labile diabetes mellitus requiring insulin, coronary artery disease, dementia, COPD, hypertension, hyperlipidemia, presented to the emergency department and was admitted on 01/31/2019 due to hypoxemia. Also, as per the daughter, she was concerned because her blood sugar was running high at home, in the 300s and 400s. X-ray showed the possibility of pneumonia. Upon admission also the patient was wheezing and coughing. X-ray showed the possibility of pneumonia at the level of the left lower lobe but then the next day, there is a more clear infiltrate at the level of the right lung. She was hypoxemic and she has a history of COPD. Upon admission, the oxygen saturation was in the high 70s. She was admitted to the medical floor. She was placed on breathing treatments. She was placed on antibiotics, oxygen supplementation. Also we noticed that her blood sugar was elevated and we put this patient on insulin and sliding scale insulin. At the beginning, upon admission, she was placed on 21 units of insulin but she then was decreased to 15. On her last discharge from this hospital she was discharged with 15 and at this moment we will do the same. We noticed that she was having some hypoglycemic issues in the morning and we also noticed that she received sliding scale insulin before bedtime every time. We decrease in half the sliding scale insulin at bedtime and then the next day in the morning the blood sugar was better, no hypoglycemia. This has been explained to the daughter, who is taking good care of this patient. As per the daughter, also this patient has dementia. I talked to her a couple times by phone including today. I explained to her the whole situation. This patient was improving on a daily basis. She has no wheezing. She is not using oxygen and actually I ask Respiratory Therapy to walk with this patient with and without oxygen and the oxygen saturation never dropped below 90. She is asymptomatic and she wants to go home today. During the conversation with the daughter, I told her that she needs to go to her primary doctor this week to readjust her home medications, especially the insulin. The pneumonia has resolved and also the COPD exacerbation got better. She will continue antibiotics at home and breathing treatment at home as well. She seems to understand. At some point we were concerned about physical deconditioning, but the patient has been walking fine. OBJECTIVE: Vital Signs: Temperature 97.8 degrees, pulse 69, respiratory rate 18, blood pressure 146/97, oxygen saturation 98 on room air. HEENT: Head normocephalic. No trauma. PERRLA. Neck: Supple. No JVD. No masses. Central trachea. Chest: Decreased breath sounds at the bases with mild crepitus. No wheezing. No rales. Abdomen: Soft, nontender, nondistended. No hepatosplenomegaly. Extremities: No edema. No clubbing. No cyanosis. Neurological: The patient is alert. She is oriented x2. She is not oriented to time. She has baseline dementia. LABORATORY: WBC 8.6, hemoglobin 13.2, hematocrit 40.4, platelets 236. Sodium 139, potassium 4.2, chloride 98, bicarbonate 31, BUN 19, creatinine 1.1, glucose 197, calcium 9.2. DISCHARGE MEDICATIONS: Mucinex 600 mg p.o. every 12 hours, insulin glargine 15 units subcutaneous at bedtime, cefdinir 300 mg p.o. twice a day for 3 more days, multivitamins daily, fish oil 1000 mg daily, vitamin C 500 mg p.o. daily, aspirin 81 mg p.o. daily, calcium plus vitamin D3 1 tablet p.o. daily, vitamin B12 5000 mcg sublingual daily, Lyrica 150 mg p.o. twice a day, lisinopril 20 mg p.o. daily, albuterol as needed, [*] 10 one dose subcutaneous as directed every 2 weeks, amlodipine 1 tablet p.o. daily, vitamin D3 1 capsule p.o. daily, denosumab 1 injection intramuscular as per the patient every 6 months, Citalopram one tablet p.o. daily, furosemide 20 mg p.o. daily, insulin aspart sliding scale as directed, simvastatin 5 mg p.o. daily, and Tradjenta 5 mg 1 tablet p.o. daily. FOLLOW UP: With her primary care doctor this week. This has been explained to the daughter, who is taking a good care of her, Mrs. Da Silva. TIME SPENT: Time discharging this patient, 35 minutes. cc: Tobi Gilliland MD
== END 2019-02-08 14:13 | disposition home or self-care (01) | DRG 190 ==
LOC: ED 15:34 → 3N 20:00 → SUATTDRO 20:00
PROVIDERS: ATTEND Internal Medicine
CPT/HCPCS: 71020; 71046; 80048; 80053; 81001; 82550; 82805; 82948; 83036; 83735; 83880; 84443; 84484; 85025; 85610; 85730; 87088; 93005; 94640; 94760; 94761; 94762; 97162; 97530; 99285; A9270; J0696; J1815; J2543; J7030; XXXXX

== ENCOUNTER 2019-06-05 18:46 | Inpatient (IN) ==
[2019-06-05] MEDS ORDERED: D50W SYRINGE IV ONE ×2 (19:14)
[2019-06-05] MEDS ORDERED: D5 1/2 NS 1,000 ML IV ONE (19:35)
[2019-06-05] MEDS ORDERED: MORPHINE IV ONE (19:35)
[2019-06-05 19:57] LABS: BASO# 0.06 X1000 (0.0-0.2); EOS# 0.09 X1000 (0.0-0.7); EOS% 1.5 % (0.0-10.0); HEMATOCRIT 42.1 % (37.0-47.0); HEMOGLOBIN 13.8 g/dL (12.0-16.0); LYMPH# 1.11 X1000 (1.2-3.4); MCHC 32.8 g/dL (33-37); MCV 91.5 FL (81-99); MONO# 0.56 X1000 (0.11-0.59); MONO% 9.1 % (1.7-9.3); MPV 10.4 FL (7.4-10.4); NEUT# 4.33 X1000 (1.4-6.5); NEUT% 70.4 % (42.2-75.2); PLT 167 X1000 (130-400); RDW 14.2 % (11.5-14.5); WBC 6.15 X1000 (4.8-10.8)
[2019-06-05 20:22] LABS: ALBUMIN 4.3 g/dL (3.5-5.0); CREATININE 1.2 mg/dL (0.5-0.9); POTASSIUM 4.1 mmol/L (3.5-5.1); TOTAL BILIRUBIN 0.27 mg/dL (0.20-1.00); TOTAL PROTEIN 6.5 g/dL (6.3-8.3)
--- NOTE | 2019-06-05 20:40 | Diag Imaging Result Doc PS360 ---
ANKLE COMPLETE LEFT - 06/05/2019 INDICATION: fall TECHNIQUE: Three views COMPARISON: None FINDINGS: There is a minimally displaced spiral fracture of the distal fibula. No dislocation. There are degenerative heel spurs. IMPRESSION: Distal fibula spiral fracture. Electronically signed by Marco Antonio Sanz 06/05/2019 8:39 PM
--- NOTE | 2019-06-05 20:41 | Diag Imaging Result Doc PS360 ---
FOOT COMPLETE LEFT - 06/05/2019 INDICATION: fall TECHNIQUE: Three views COMPARISON: None FINDINGS: There is severe diffuse soft tissue swelling over the entire foot. There is mildly displaced fracture through the base of the third metatarsal. There is probably also fracture through the base of the second metatarsal. No dislocations. IMPRESSION: 1. Fractures of the second and third metatarsals. 2. Severe soft tissue swelling of the foot that appears most likely to be pedal edema. Electronically signed by Marco Antonio Sanz 06/05/2019 8:40 PM
--- NOTE | 2019-06-05 21:18 | EKG Report ---
Test Performed on : 06/05/2019 7:15:38 PM Test Reason : syncope Blood Pressure : / mmHG Vent. Rate : 059 BPM Atrial Rate : 059 BPM P-R Int : 140 ms QRS Dur : 114 ms QT Int : 478 ms P-R-T Axes : 022 -12 023 degrees QTc Int : 473 ms Sinus bradycardia. Incomplete right bundle branch block Voltage criteria for left ventricular hypertrophy Nonspecific T wave abnormality Prolonged QT Abnormal ECG When compared with ECG of 31-JAN-2019 17:51, Criteria for Septal infarct are no longer present Nonspecific T wave abnormality, worse in Anterolateral leads Unconfirmed Result
--- NOTE | 2019-06-05 22:38 | PROVIDER DOCUMENTATION ---
This chart was entered by Ximena Pan Scribe, acting as scribe for Kody Almazan MD. HPI-General Adult - General Chief Complaint: Syncope Stated Complaint: unresponsive Time Seen by Provider: 06/05/19 19:14 Source: EMS Allergies/Adverse Reactions: Patient Allergies Allergy/AdvReac Type Severity Reaction Status Date / Time amitriptyline Allergy Mild ITCHING Verified 06/05/19 20:05 azithromycin Allergy Mild ITCHING Verified 06/05/19 20:05 codeine Allergy Mild ITCHING Verified 06/05/19 20:05 ketorolac tromethamine * Allergy Mild ITCHING Verified 06/05/19 20:05 [From Toradol] Quinolones Allergy Mild ITCHING Verified 06/05/19 20:05 ketorolac [From Toradol] Allergy Unknown Verified 06/05/19 20:05 Home Medications: Home Medication List Medication Instructions Recorded Confirmed Last Taken Type Ascorbic Acid [Vitamin C] 500 mg PO DAILY 12/29/15 06/10/19 08/19/18 History Multivit with Calcium,Iron,Min 1 each PO DAILY 12/29/15 06/10/19 08/19/18 History [Women's Daily Multivitamin] Aldrich-3 Fatty Acids/Fish Oil [Fish 1 each PO DAILY 12/29/15 06/10/19 08/19/18 History Oil 1,000 mg Softgel] Aspirin 81 mg PO DAILY 07/11/18 06/10/19 08/19/18 History Calcium Carb/Vitamin D3/Vit K1 1 each PO DAILY 07/11/18 06/10/19 08/19/18 History [Calcium + D Soft Chewable Tab] Cyanocobalamin/Cobamamide [B12 1 each SL DAILY 07/11/18 06/10/19 08/19/18 History 5,000 Mcg Microlozenge] Pregabalin [Lyrica] 150 mg PO BID 07/11/18 06/10/19 08/19/18 History Albuterol [Albuterol Neb] 1 dose INH PRN PRN 01/10/19 06/10/19 Unknown History Alirocumab [Praluent Pen] 1 dose SQ DIRECTED 01/10/19 06/10/19 06/10/19 History Amlodipine Besylate 1 tab PO DAILY 01/10/19 06/10/19 Unknown History Cholecalciferol (Vitamin D3) 1 cap PO DAILY 01/10/19 06/10/19 Unknown History [Vitamin D3] Cyanocobalamin/Folic Acid [Vitamin 1 tab PO DAILY 01/10/19 06/10/19 Unknown History [id number] Acid Tablet] Denosumab [Prolia] 1 ea IM DIRECTED 01/10/19 06/10/19 03/21/18 History Escitalopram [Lexapro] 1 tab PO DAILY 01/10/19 06/10/19 Unknown History Furosemide 1 tab PO DAILY 01/10/19 06/10/19 Unknown History Simvastatin 1 tab PO DAILY 01/10/19 06/10/19 Unknown History Metformin [Glucophage] 500 mg PO BID CC 30 Days #60 tab 06/08/19 06/10/19 Unknown Rx - History of Present Illness -Gen Adult Nature of Presenting Problems: Pt is 69/F presenting to ED via EMS. Pt had blood sugar drop at home, down to 20's so EMS was called. Pt fell at home, hurting her R ankle as well. Family at bedside sts that she ate lunch as normal, but did not have a snack since. Location of Pain/Injury: reports: lower extremity (pt has swollen L ankle) Pain Radiation: reports: no radiation Onset/Duration: reports: just prior to arrival Timing: reports: still present Context/Activities at Onset: reports: none Modifying Factors: improves with: nothing Associated Symptoms: reports: denies symptoms Similar Symptoms Previously?: No Recently seen or treated by another doctor?: No - Diabetes Related Context Context: reports: low blood sugar Review of Systems - Adult - REVIEW OF SYSTEMS - ADULT Constitutional: denies: chills, fever Eyes: reports: no symptoms reported Ears, Nose, Mouth & Throat: reports: no symptoms reported Cardiovascular: reports: no symptoms reported Respiratory: reports: no symptoms reported Gastrointestinal: reports: no symptoms reported. denies: nausea, vomiting Genitourinary: reports: no symptoms reported Musculoskeletal: reports: no symptoms reported Integumentary: reports: no symptoms reported Neurological: reports: no symptoms reported. denies: dizziness/vertigo, headache/migraines Psychiatric: reports: no symptoms reported Endocrine: reports: no symptoms reported Hematologic/Lymphatic: reports: no symptoms reported Allergic/Immunologic: reports: no symptoms reported All Other Systems: Reviewed and Negative Past History - Adult - PAST MEDICAL HISTORY-ADULT Review of Records: reports: Old Records Reviewed, Nursing Assessment Review, Medications Reviewed, Social history reviewed & non-contributory. Major Childhood Illnesses: reports: denies history Cardiovascular: reports: CAD, cardiac disease, denies history, HTN, hyperlipidemia Respiratory: reports: COPD, denies history Gastrointestinal: reports: denies history Obstetrical/Gynecological: reports: denies history Genitourinary: reports: denies history Musculoskeletal: reports: denies history Neurological: reports: denies history Endocrine/Immune: reports: Diabetes Other Conditions: reports: denies history - PRIOR SURGERIES/PROCEDURES Surgical/Procedure History: reports: hysterectomy, appendectomy - IMMUNIZATION STATUS Childhood Immunizations: See Nurse Assessment Flu Vaccine: See Nurse Assessment - FAMILY HISTORY Family History: reviewed, not pertinent - SOCIAL HISTORY Living Situation: family Physical Exam-General - PHYSICAL EXAM-ADULT Initial Vital Signs Reviewed: Yes - CONSTITUTIONAL General Appearance: appears well, alert - EYES Eyes: PERRL/EOMI - HEAD, EARS, NOSE, MOUTH & THROAT HENMT: normocephalic/atraumatic, moist mucous membranes - NECK Neck: non-tender, full range of motion, supple - RESPIRATORY Respiratory: lungs clear - CARDIOVASCULAR Cardiovascular: regular rate, rhythm - GASTROINTESTINAL (ABDOMEN) Abdominal Exam: soft - MUSCULOSKELETAL Extremity: tenderness (L ankle edema and tender to palpation) - SKIN Integumentary: normal color, warm/dry - NEUROLOGIC Neurologic: grossly normal - PSYCHIATRIC Psych/Mental Status: normal mood/affect, normal thought content, normal thought process, oriented x 3 Progress - PLAN OF CARE/RESULTS Progress/Plan/Lab Results: Vital Signs - 8 hr 06/05/19 19:14 Temperature 98.1 F Pulse Rate 61 Respiratory Rate 20 Blood Pressure 145/74 O2 Sat by Pulse Oximetry 97 Laboratory Results - last 24 hr 06/05/19 19:11 POC Glucose 35 L D Orders Category Date Time Status Nursing- Obtain EKG ONCE Care 06/05/19 19:34 Active ANKLE COMPLETE LEFT [RAD] Stat Exams 06/05/19 19:36 Ordered FOOT COMPLETE LEFT [RAD] Stat Exams 06/05/19 19:36 Ordered CBC WITH ELECTRONIC DIFF [HEME] Stat Lab 06/05/19 19:34 Uncollected COMPREHENSIVE METABOLIC PANEL [CHEM] Stat Lab 06/05/19 19:34 Uncollected TROPONIN T Stat Lab 06/05/19 19:34 Uncollected Dextrose 5%-0.45% NaCl Inj [D5 1/2 Ns] 1,000 ml Med 06/05/19 19:35 Active IV 125 mls/hr Dextrose 50% Syringe [D50w Syringe] Med 06/05/19 19:14 Discontinued 50 ml IV NOW ONE Dextrose 50% Syringe [D50w Syringe] Med 06/05/19 19:14 Discontinued 50 ml IV NOW ONE Morphine Med 06/05/19 19:35 Discontinued 4 mg IV NOW ONE EKG [EKG] Stat Ther 06/05/19 19:34 Ordered Result Diagrams: 06/08/19 05:10 06/08/19 05:10 - EKG 1 Time of EKG reading by physician:: 19:15 EKG Read and Signed by:: Kdoy Almazan EKG Interpretation (*Must complete 3 of following elements*): Abnormal (sinus bradycardia, Incomplete right bundle branch block, Voltage criteria for left ventricular hypertrophy nonspecific T wave abnormality. Prolonged QT abnormal ECG) Rate: 59 Rhythm: sinus bradycardia [place]: normal - XRAY 1 XRAY: Left XRAY Study: Foot Impression: Abnormal (FOOT COMPLETE LEFT - 06/05/2019 INDICATION: fall TECHNIQUE: Three views COMPARISON: None FINDINGS: There is severe diffuse soft tissue swelling over the entire foot. There is mildly displaced fracture through the base of the third metatarsal. There is probably also fracture through the base of the second metatarsal. No dislocations. IMPRESSION: 1. Fractures of the second and third metatarsals. 2. Severe soft tissue swelling of the foot that appears most likely to be pedal edema. Electronically signed by Marco Antonio Sanz 06/05/2019 8:40 PM 06/05/192039 Interpreting Physician: Marco Antonio Sanz MD Dictated Date/Time: 06/05/192038 cc: Kody Almazan MD; Rome Cohen MD) 2 XRAY: Left XRAY Study: Ankle Impression: Abnormal (ANKLE COMPLETE LEFT - 06/05/2019 INDICATION: fall TECHNIQUE: Three views COMPARISON: None FINDINGS: There is a minimally displaced spiral fracture of the distal fibula. No dislocation. There are degenerative heel spurs. IMPRESSION: Distal fibula spiral fracture. Electronically signed by Marco Antonio Sanz 06/05/2019 8:39 PM 06/05/192038 Interpreting Physician: Marco Antonio Sanz MD Dictated Date/Time: 06/05/192037 cc: Kody Almazan MD; Rome Cohen MD) - CONSULTS/PCP/HOSPITALIST Notification #1 *Consult/PCP/Hospitalist*: Dr. Garcia ( hospitalist ) Time Discussed: 22:35 Consult Disposition: Admit Departure - Departure Date of Disposition Decision: 06/05/18 Time of Disposition Decision: 20:30 DIAGNOSIS: Syncope Qualifiers: Syncope type: unspecified Qualified Code(s): R55 - Syncope and collapse Disposition: ADMITTED INPATIENT 09 Certified Medical Emergency: Emergent Condition: Stable - Critical Care Note This patient required my direct & personal management of CC.: No Attestation - Physician/ ANA LAURA Attestation Patient care was provided by Advanced Practice Provider:: No The physician spent face to face time with patient:: Yes Advanced Practice Provider documentation review:: Supervising physician onsite and consulted in the evaluation and care of this patient. The physician did have a face to face encounter with the patient. This chart was documented by the indicated scribe, (Ximena Pan, Scribe) and accurately reflects the services I performed and decisions made by me, Kody Almazan MD, as attested by the provider's signature.
[2019-06-05] MEDS ORDERED: ALBUTEROL NEB INH PRN (22:43)
[2019-06-05] MEDS ORDERED: ZOFRAN IV PRN (23:47)
[2019-06-05] MEDS ORDERED: TYLENOL PO PRN (23:47)
[2019-06-06] MEDS: LYRICA PO SCH ×4 (00:11→21:15)
[2019-06-06] MEDS: MORPHINE IV PRN ×4 (00:12→16:30)
[2019-06-06] MEDS: HUMALOG SUBQ SCH ×5 (00:35→17:12)
[2019-06-06 04:25] LABS: URINE SOURCE CLEAN CATCH
[2019-06-06 04:28] LABS: BILIRUBIN URINE NEGATIVE (NEGATIVE); BLOOD URINE NEGATIVE (NEGATIVE); COLOR STRAW; GLUCOSE URINE 1000 mg/dL (NEGATIVE); KETONE URINE NEGATIVE (NEGATIVE); LEUKOCYTES URINE NEGATIVE (NEGATIVE); NITRITE URINE NEGATIVE (NEGATIVE); PROTEIN URINE NEGATIVE (NEGATIVE); SP GRAVITY URINE 1.005; TURBIDITY URINE CLEAR (CLEAR); UROBILINOGEN URINE NORMAL (NORMAL)
[2019-06-06 04:29] LABS: UR EPITHELIAL CELLS <10 /HPF (<10); URINE BACTERIA NEGATIVE /HPF; URINE RBC <10 /HPF (<10); URINE WBC <10 /HPF (<10)
[2019-06-06 06:01] LABS: BASO# 0.03 X1000 (0.0-0.2); BASO% 0.5 % (0.0-0.8); EOS# 0.08 X1000 (0.0-0.7); EOS% 1.3 % (0.0-10.0); HEMATOCRIT 40.6 % (37.0-47.0); HEMOGLOBIN 13.2 g/dL (12.0-16.0); LYMPH# 1.27 X1000 (1.2-3.4); MCH 29.7 PG (27-31); MCHC 32.5 g/dL (33-37); MCV 91.4 FL (81-99); MONO# 0.63 X1000 (0.11-0.59); MONO% 10.4 % (1.7-9.3); NEUT# 4.04 X1000 (1.4-6.5); NEUT% 66.8 % (42.2-75.2); PLT 149 X1000 (130-400); RBC 4.44 XMIL (4.2-5.4); RDW 13.9 % (11.5-14.5); WBC 6.05 X1000 (4.8-10.8)
[2019-06-06 06:14] LABS: INR 0.94; PROTIME 12.7 Seconds (11.0-16.0)
[2019-06-06 06:15] LABS: PTT 30.3 Seconds (22.3-41.8)
[2019-06-06 06:25] LABS: CALCIUM 7.7 mg/dL (8.8-10.2); CREATININE 1.1 mg/dL (0.5-0.9); POTASSIUM 4.1 mmol/L (3.5-5.1)
--- NOTE | 2019-06-06 09:06 | PROGRESS NOTE ---
DATE: 06/06/2019 SUBJECTIVE: Ms. Cali was admitted yesterday. She complained of a syncopal event. Her report was that she thought her sugars had dropped, but they dropped down into the 20s. EMS was called. She was hurt in her right ankle. Family at the bedside says she ate lunch normal, but did not have a snack. PAST MEDICAL HISTORY: Denies any history of hypertension, hyperlipidemia, history of coronary artery disease, history of COPD. PAST SURGICAL HISTORY: Status post hysterectomy and appendectomy. OBJECTIVE: General: She is awake and alert, remains afebrile. Vital Signs: Temperature 97.7 degrees, pulse 66, respirations 18. Eyes: Pupils are equal. Lungs: Lungs are clear in all lung renteria. Cardiovascular exam: Regular rhythm and rate without murmur or S3. Abdomen: Soft. Skin: Warm and dry. : Urine output was 2 L. LAB WORK: When she came in, white count 6150, hematocrit 42 platelet count 167,000. Sodium 143, potassium 4.1, chloride 104. BUN 17, creatinine 1.2. Blood sugar last two were 185 and 439. Urinalysis unremarkable. X-RAYS: X-ray of the foot: Fractures of the 2nd and 3rd metatarsals. Severe soft tissue swelling that appears most likely to be pedal edema. Ankle x-ray: Distal fibula spiral fracture. ASSESSMENT AND PLAN: 1. Hypoglycemia, which is improved. At home, she was taking Tradjenta 1 tablet a day and insulin glargine 15 units at bedtime and NovoLog I think as needed. Her blood sugars seem to have come up pretty well. 2. Fracture of her metatarsal and distal fibula spiral fracture. We will see what Orthopedic wants to do, and we will have to decide on her discharge planning whether she needs to go to rehabilitation. 3. Apparently history of coronary artery disease. Looking back at Cardiology consultation in the past, she has had a syncopal episode in the past thought suspicious for orthostatic hypotension and sinus bradycardia. She has had a previous coronary artery bypass graft in 2011. Recurrent falls with syncopal events in the past. This one appears to be related to her hypoglycemia. We will watch her blood pressure. cc: Antonio De Santiago MD
[2019-06-06] MEDS ORDERED: D50W SYRINGE IV ONE (09:17)
[2019-06-06] MEDS: ASPIRIN PO SCH ×3 (09:34→13:24)
[2019-06-06] MEDS: ZOCOR PO SCH ×2 (09:34→13:24)
[2019-06-06] MEDS: OSCAL 500 + D PO SCH ×2 (09:38→13:25)
[2019-06-06] MEDS: VITAMIN B-12 SL SCH ×2 (09:38→13:24)
[2019-06-06] MEDS: VITAMIN D PO SCH ×2 (09:38→13:24)
[2019-06-06] MEDS: VITAMIN C PO SCH ×2 (09:38→13:24)
[2019-06-06] MEDS: NORVASC PO SCH ×2 (09:40→13:23)
[2019-06-06] MEDS: CENTRUM SILVER PO SCH ×2 (09:40→13:23)
[2019-06-06] MEDS: NEPHRO-VITE PO SCH ×2 (09:40→13:24)
[2019-06-06] MEDS: FISH OIL CONCENTRATE PO SCH ×2 (09:41→13:25)
[2019-06-06] MEDS: LEXAPRO PO SCH ×2 (09:41→13:24)
[2019-06-06] MEDS: LASIX PO SCH ×2 (09:41→13:25)
--- NOTE | 2019-06-06 14:52 | CONSULTATION ---
DATE OF CONSULTATION: 06/06/2019 CHIEF COMPLAINT: Foot and ankle pain. HISTORY: Patient is a pleasant, 69-year-old female who is 1 day status post fall secondary to a syncopal event. She feels that her blood sugar dropped. She developed discomfort in left foot and ankle. She presented to the emergency room and x-rays were obtained and revealed evidence of a 2nd and 3rd metatarsal fracture as well as a fibular fracture. She is admitted to the hospital for further evaluation. HOME MEDICATIONS: 1. Multivitamin. 2. [place]-3. 3. Vitamins C 500 mg p.o. daily. 4. Aspirin P.o. daily. 5. Calcium plus D chewable tab 1 p.o. daily. 6. Lyrica 150 mg p.o. b.i.d. 7. Albuterol inhaler. 8. Amlodipine besylate 5 mg p.o. daily 9. Vitamin D3 1000 unit capsule p.o. daily. 10. Vitamin B12 with folic acid p.o. daily. 11. Prolia 60 mg per mL syringe 1 each IM as directed. 12. Lexapro 10 mg p.o. daily. 13. Furosemide 20 mg p.o. daily. 14. Insulin as directed. 15. Simvastatin 5 mg p.o. daily. 16. Tradjenta 5 mg p.o. daily. 17. Mucinex 600 mg p.o. q.12 hours. 18. Omnicef 300 mg p.o. b.i.d. ALLERGIES: Amitriptyline, azithromycin, codeine, ketolorac tromethamine. PAST MEDICAL HISTORY: Hypertension, hyperlipidemia, history of coronary artery disease, and history of COPD. PAST SURGICAL HISTORY: Hysterectomy and appendectomy. PHYSICAL EXAMINATION: Patient is awake, alert, cooperative. Exam of her left lower extremity: Her foot does have moderate swelling. Some swelling on the ankle as well. Tenderness to palpation of the lateral aspect of the ankle and distal fibula. Nontender along the medial aspect of the ankle. She has tenderness along proximal tib-fib joint, diffuse tenderness to palpation on the foot. She has active dorsiflexion and plantar flexion. X-rays were reviewed the left ankle. Revealed a spiral fracture of most distal fibula with good alignment. X-rays of the left foot revealed evidence of fractures at the proximal aspect of the second and third metatarsal. IMPRESSION: 1. Left distal fibula fracture. 2. Left second and third metatarsal fracture. PLAN: Will place patient in a posterior splint. We will mobilize physical therapy with touchdown weightbearing. Would recommend repeating x-ray in 1 week for further evaluation. cc: Dwight Doyle MD MTDD
[2019-06-06] MEDS: OXY IR PO PRN (21:15)
[2019-06-07] MEDS: HUMALOG SUBQ SCH ×5 (01:06→22:17)
--- NOTE | 2019-06-07 08:10 | PROGRESS NOTE ---
DATE: 06/07/2019 SUBJECTIVE: Ms. Cali states she is doing real well. She is comfortable, breathing comfortably. OBJECTIVE: Vital Signs: She remains afebrile, temperature 98.4 degrees, pulse 67, respirations 18, blood pressure 159/84. HEENT: Pupils are equal and round. Lungs: Clear in all lung renteria. Cardiovascular: Regular rhythm and rate without murmur or S3. Abdomen: Soft. Skin: Warm and dry. Blood sugars 279, 286, and 347. ASSESSMENT AND PLAN: 1. Left distal fibula fracture. She also has a left second and third metatarsal fracture. She is in a cast, and comfortable. 2. Diabetes mellitus. Sugar is running a little high. She had hypoglycemia when she came in, so we will have to be careful with all of this. She is on a sliding scale now. I am going to put her on some metformin, and consider Januvia. She is very sensitive to insulin, and we have kind of see sawed back and forth. cc: Antonio De Santiago MD
--- NOTE | 2019-06-07 08:39 | ORTHOPAEDICS PROGRESS NOTE ---
DATE: 06/07/2019 SUBJECTIVE: The patient is a pleasant, 69-year-old female who is status post fall, sustaining a left distal fibula fracture and left 2nd and 3rd metatarsal fractures. She was placed in a posterior splint yesterday. She has rested well through the night. OBJECTIVE: On physical exam, patient's left lower extremity splint is intact. She has some expected ecchymosis along the distal aspect of her foot. She is able flex and extend her toes. Compartments are soft. IMPRESSION: 1. Left distal fibula fracture. 2. Left 2nd and 3rd metatarsal fractures. PLAN: At this point, the patient will continue mobilization with physical therapy, encouraged her for elevation. She is stable from an orthopedic standpoint. We will see her in the office on 06/09/2019 for repeat x-ray and anticipation for conversion to a short leg cast if x-rays are still acceptable position. cc: Dwight Doyle MD
[2019-06-07] MEDS: FISH OIL CONCENTRATE PO SCH (09:07)
[2019-06-07] MEDS: ZOCOR PO SCH (09:07)
[2019-06-07] MEDS: NORVASC PO SCH (09:07)
[2019-06-07] MEDS: VITAMIN C PO SCH (09:08)
[2019-06-07] MEDS: VITAMIN D PO SCH (09:08)
[2019-06-07] MEDS: ASPIRIN PO SCH (09:08)
[2019-06-07] MEDS: VITAMIN B-12 SL SCH (09:08)
[2019-06-07] MEDS: GLUCOPHAGE PO SCH ×2 (09:08→17:25)
[2019-06-07] MEDS: LASIX PO SCH (09:08)
[2019-06-07] MEDS: LEXAPRO PO SCH (09:08)
[2019-06-07] MEDS: CENTRUM SILVER PO SCH (09:08)
[2019-06-07] MEDS: NEPHRO-VITE PO SCH (09:08)
[2019-06-07] MEDS: OXY IR PO PRN ×4 (09:09→22:15)
[2019-06-07] MEDS: OSCAL 500 + D PO SCH (09:09)
[2019-06-07] MEDS: LYRICA PO SCH ×2 (09:11→22:15)
[2019-06-08] MEDS: HUMALOG SUBQ SCH ×2 (00:17→04:56)
[2019-06-08 05:40] LABS: BASO# 0.06 X1000 (0.0-0.2); BASO% 1.1 % (0.0-0.8); EOS# 0.08 X1000 (0.0-0.7); EOS% 1.5 % (0.0-10.0); HEMOGLOBIN 13.1 g/dL (12.0-16.0); LYMPH# 1.75 X1000 (1.2-3.4); LYMPH% 32.1 % (20.5-51.1); MCH 30.1 PG (27-31); MCHC 33.6 g/dL (33-37); MCV 89.7 FL (81-99); MONO# 0.57 X1000 (0.11-0.59); MONO% 10.4 % (1.7-9.3); MPV 10.7 FL (7.4-10.4); NEUT% 54.9 % (42.2-75.2); PLT 171 X1000 (130-400); RBC 4.35 XMIL (4.2-5.4); RDW 13.3 % (11.5-14.5); WBC 5.46 X1000 (4.8-10.8)
[2019-06-08 06:07] LABS: HEMOGLOBIN A1C 8.2 % (4.8-6.0)
[2019-06-08 06:14] LABS: ALB/GLOB RATIO 1.6; ALBUMIN 3.8 g/dL (3.5-5.0); CALCIUM 9.1 mg/dL (8.8-10.2); CREATININE 1.1 mg/dL (0.5-0.9); MAGNESIUM 1.7 mg/dL (1.5-2.7); POTASSIUM 3.9 mmol/L (3.5-5.1); TOTAL BILIRUBIN 0.48 mg/dL (0.20-1.00); TOTAL PROTEIN 6.2 g/dL (6.3-8.3)
[2019-06-08 08:02] VITALS: BP 180/78
--- NOTE | 2019-06-08 09:32 | DISCHARGE SUMMARY ---
ADMISSION DATE: 06/05/2019 DISCHARGE DATE: 06/08/2019 HISTORY OF PRESENT ILLNESS: This is a 69-year-old who slipped and fell. She presented with low blood sugar, hypoglycemia, which probably led to her fall or contributed to her fall. PAST MEDICAL HISTORY: 1. Hypertension. 2. Hyperlipidemia. 3. History of coronary artery disease. 4. History of COPD. HOSPITAL COURSE: She had a fracture of her distal fibula and 2nd and 3rd metatarsals, severe soft tissue swelling around the foot. Her ankle x-ray showed distal fibula spiral fracture. She was placed in a cast. Sugars were under control and she wanted to go home. She is able to get to wheelchair and ambulate, and she has assistance at home, so plan to discharge her on 06/08/2019. DISCHARGE MEDICATIONS: She will take 1. Norvasc 5 mg p.o. daily. 2. Vitamin C 500 mg a day. 3. Aspirin 81 mg a day. 4. Calcium with vitamin D 1 a day. 5. Vitamin D 1000 units p.o. daily. 6. Vitamin B12 5000 mcg sublingual daily. 7. Lexapro 10 mg a day. 8. I put her on Glucophage 500 mg b.i.d. 9. She takes a multivitamin called Nephro-Alex. 10. Centrum Silver 1 a day. 11. Fish oil concentrate 1000 mg a day. 12. I will give her some Oxy IR, about 20 of them, p.r.n. pain. 13. She is on Lyrica 150 mg b.i.d. 14. Zocor 5 mg daily. FOLLOWUP: I want her to follow up with her primary care physician, and she will follow up with Dr. Doyle. She has a cast on her left leg. cc: Antonio De Santiago MD
[2019-06-08] MEDS: OSCAL 500 + D PO SCH (10:32)
[2019-06-08] MEDS: FISH OIL CONCENTRATE PO SCH ×2 (10:33→10:39)
[2019-06-08] MEDS: ASPIRIN PO SCH (10:33)
[2019-06-08] MEDS: VITAMIN B-12 SL SCH (10:33)
[2019-06-08] MEDS: LEXAPRO PO SCH (10:33)
[2019-06-08] MEDS: NORVASC PO SCH (10:33)
[2019-06-08] MEDS: CENTRUM SILVER PO SCH (10:34)
[2019-06-08] MEDS: VITAMIN D PO SCH (10:34)
[2019-06-08] MEDS: LASIX PO SCH (10:34)
[2019-06-08] MEDS: NEPHRO-VITE PO SCH (10:35)
[2019-06-08] MEDS: OXY IR PO PRN (10:35)
[2019-06-08] MEDS: VITAMIN C PO SCH (10:35)
[2019-06-08] MEDS: LYRICA PO SCH (10:35)
[2019-06-08] MEDS: GLUCOPHAGE PO SCH (10:35)
[2019-06-08] MEDS: ZOCOR PO SCH (10:39)
--- NOTE | 2019-07-09 00:56 | HISTORY AND PHYSICAL ---
CHIEF COMPLAINT: Unresponsive, syncopal episode. HISTORY OF PRESENTING ILLNESS: A 69-year-old female apparently was brought to the emergency department after she had an episode where she somehow became unresponsive and passed out. When EMS arrived, they had found that patient had a blood sugar of around 20s. This was treated and she was brought to the emergency department. When she arrived in the ED, she was still somewhat confused. She was also complaining of a left ankle pain. Imaging was done of this which did show a 2nd and 3rd metatarsal fracture. Due to her overall presenting symptoms, it was thought that she would require admission for further management. The patient still was somewhat groggy. However, she had denied any fever, chills, chest pain, shortness of breath or any weight changes. PAST MEDICAL HISTORY: hypertension, hyperlipidemia, coronary disease, COPD. PAST SURGICAL HISTORY: Hysterectomy, appendectomy. ALLERGIES: Amitriptyline, azithromycin, codeine, Ketoralac. CURRENT MEDICATION: She does not recall and nursing staff will reconcile. SOCIAL HISTORY: No history of smoking, alcohol or illicit drug use. FAMILY HISTORY: No history of coronary artery disease. REVIEW OF SYSTEMS: Fourteen point review of systems as listed in HPI. Other systems negative. PHYSICAL EXAMINATION: GENERAL: Cooperative, friendly female. She is resting more comfortably. VITAL SIGNS: Temperature 98.5 degrees, pulse 61, respirations 16, blood pressure 180/78. HEENT: Extraocular movements intact. PERRLA. NECK: No masses. CHEST: Clear to auscultation. CARDIOVASCULAR: Regular rate and rhythm. ABDOMEN: Soft, positive bowel sounds. EXTREMITIES: Left ankle tenderness. NEUROLOGIC: She is awake, alert, oriented x2. GENITOURINARY: No bladder distention. SKIN: Warm. ASSESSMENT: This is a 69-year-old female who was brought to the emergency department after she had an episode where she became unconscious. It was noted that she had low blood sugars around the 20s or 30s when EMS arrived. This was treated. She was brought to the emergency department. She complained of pain in her left foot region. Imaging was done which did show a fracture of the 2nd and 3rd metatarsals. Due to her presenting symptoms, she will require admission for further management. 1. Altered mental status, syncopal episode secondary to #2. 2. Hypoglycemia. 3. Left foot and ankle pain, possible 2nd and 3rd metatarsal fracture. 4. Hypertension. PLAN: 1. We will admit patient to medical floor with telemetry. 2. Continue with neuro checks. Check orthostatic blood pressure and pulse. 3. Monitor her blood glucose closely. 4. We will consult Orthopedics for evaluation of left foot and ankle pain. 5. Monitor blood pressure closely. 6. We will continue to follow, and reassess and make further recommendation based on patient's clinical course. cc: Pk Garcia MD MTDD
== END 2019-06-08 10:59 | disposition home or self-care (01) | DRG 639 ==
LOC: ED 18:46 → 4N 23:27 → SUATTDRO 23:27
PROVIDERS: ATTEND Emergency Medicine